=== PATIENT | male | born 1950 | race Caucasian/White ===

== ENCOUNTER 2020-04-14 07:02 | Outpatient (CLI) | payer MEDICARE, BC ==
--- NOTE | 2020-04-14 14:28 | Ultrasound Report ---
PROCEDURE: Aorta Screening INDICATIONS: AAA SCREEN TECHNIQUE: Real time scanning was performed of the aorta and iliac arteries, with image documentatio n. COMPARISON: None FINDINGS: Aorta: Proximal aortic diameter measures 2.7 x 2.4 cm. Mid-aorta measures 1.9 x 2.1 cm. Distal aor tic diameter is 1.6 x 1.5 cm. Iliac arteries: Right common iliac artery measures 0.9 x 0.9 cm. Left common iliac artery measures 1.0 x 1.1 cm. IMPRESSION: No aneurysmal dilation. Reviewed by: Meka Cole MD on 04/14/2020 2:27 PM PDT Approved by: Meka Cole MD on 04/14/2020 2:27 PM PDT Station ID: [id number]
== END 2020-04-14 07:03 | disposition home or self-care (01) ==
LOC: DI 07:02
PROVIDERS: ATTEND Internal Medicine
DX: Z13.6 Encounter for screening for cardiovascular disorders (principal)
CPT/HCPCS: 76706

== ENCOUNTER 2021-10-01 08:00 | Outpatient (CLI) | payer BC, MEDICARE ==
--- NOTE | 2021-10-01 16:10 | XRAY Report ---
PROCEDURE: Foot 3 View LT INDICATIONS: LEFT FOOT PAIN TECHNIQUE: 3 views of the foot were acquired. COMPARISON: None FINDINGS: Bones: No fractures or dislocations. No suspicious bony lesions. Soft tissues: No tibiotalar joint effusion. Achilles tendon appears normal. IMPRESSION: No osseous lesion. If there are persistent symptoms or continued clinical concern for pathology, then repeat plain film radiographs (7-10 days) or advanced imaging (CT, MR, bone scan) should be consider ed for further evaluation. Reviewed by: Mya Nava MD, PhD on 10/01/2021 4:08 PM PST Approved by: Mya Nava MD, PhD on 10/01/2021 4:08 PM PST Station ID: [id number]
== END 2021-10-01 23:59 | disposition home or self-care (01) ==
LOC: DI.S 08:00
PROVIDERS: ATTEND Physician Assistant Medical
DX: M79.672 Pain in left foot (principal)

== ENCOUNTER 2022-12-09 11:57 | Day surgery (SDC) | payer MEDICARE ==
[2022-12-09] MEDS ORDERED: ceFAZolin 2 GM VIAL ONE (12:03)
[2022-12-09] MEDS ORDERED: LACTATED RINGERS 1,000 ML IV ONE ×2 (12:07→15:03)
[2022-12-09] MEDS ORDERED: LIDOCAINE MPF 2%-EPI 1:200000 20 ML VIAL ONE (13:10)
[2022-12-09] MEDS ORDERED: BUPIVACAINE 0.25% PF 30 ML VIAL ONE (13:10)
--- NOTE | 2022-12-09 13:11 | ANESTHESIA ---
Pre-Anesthesia VS, & Labs - Diagnosis left inguinal hernia - Procedure left inguinal hernia repair with mesh Vital Signs: Temp Pulse Resp BP Pulse Ox O2 Flow Rate 36.6 C 55 L 16 157/84 H 100 12/09/22 12:12 12/09/22 12:12 12/09/22 12:12 12/09/22 12:12 12/09/22 12:12 Height: 5 ft 9 in Weight (kg): 79 kg Body Mass Index: 25.7 BMI Classification: Overweight - NPO >8 hours Home Medications and Allergies Home Medications: Ambulatory Orders No Known Home Medications 11/30/22 No Known Home Medications 11/30/22 Allergies/Adverse Reactions: Allergies Allergy/AdvReac Type Severity Reaction Status Date / Time No Known Drug Allergies Allergy Verified 11/30/22 13:26 Anes History & Medical History - Anesthetic History Anesthesia Complications: reports: No previous complications - Medical History Cardiovascular: reports: Hypertension, High cholesterol Pulmonary: reports: None Gastrointestinal: reports: None Urinary: reports: None Neuro: reports: None Musculoskeletal: reports: None Endocrine/Autoimmune: reports: None Skin: reports: None Smoking Status: Former smoker (quit 1982) Psychosocial: reports: Alcohol (2-3 beers and liquor daily) History of Cancer?: No - Surgical History General: reports: Colonoscopy, Other (right IHR) Exam General: Alert, Oriented x3, Cooperative, No acute distress Dental: WNL Mouth Openin Fingerbreadth Neck Mobility: Normal Mallampati classification: II Thyromental Distance: 4-6 cm Mental/Cognitive Status: Alert/Oriented X3, Normal for patient Plan Anesthesia Type: MAC Consent for Procedure(s) Verified and Reviewed: Yes Code Status: Attempt Resuscitation ASA classification: 2-Mild systemic disease Is this case an emergency?: No
[2022-12-09] MEDS ORDERED: MIDAZOLAM 2 MG/2 ML VIAL ONE (13:20)
[2022-12-09] MEDS ORDERED: PROPOFOL 500 MG/50 ML 500 MG/50 ML VIAL ONE (13:20)
[2022-12-09] MEDS ORDERED: fentaNYL 100 MCG/2 ML VIAL ONE (13:21)
--- NOTE | 2022-12-09 13:33 | HISTORY & PHYSICAL EXAMINATION ---
Chief Complaint - Chief Complaint Chief Complaint: left inguinal hernia History of Present Illness - History Obtained From Records Reviewed: yes History obtained from: pt Exam Limitations: none - History of Present Illness HPI Comment/Other: left inguinal hernia x mos. getting worse History - Past Medical History Cardiovascular: reports: Hypertension, High cholesterol Respiratory: reports: None Neuro: reports: None Endocrine/Autoimmune: reports: None GI: reports: None : reports: None HEENT: reports: Chronic vision loss Psych: reports: None Musculoskeletal: reports: None Derm: reports: None MRSA Hx?: No - Past Surgical History General: reports: Colonoscopy, Other (right IHR) Meds/Allgy - Home Medications Home Medications: Ambulatory Orders Medication Instructions Recorded Confirmed No Known Home Medications 11/30/22 11/30/22 - Allergies Allergies/Adverse Reactions: Allergies Allergy/AdvReac Type Severity Reaction Status Date / Time No Known Drug Allergies Allergy Verified 11/30/22 13:26 Review of Systems - Other Findings Other Findings: 10 pt ros as above otherwise unremarkable Exam - Vital Signs Reviewed Vital Signs: Yes Vital Signs: Vital Signs x48h Temp Pulse Resp BP Pulse Ox 12/09/22 12:12 36.6 C 55 L 16 157/84 H 100 - Physical Exam General Appearance: positive: No acute distress, Alert Eyes Bilateral: positive: PERRL, EOMI ENT: positive: No signs of dehydration Neck: positive: No JVD, Trachea midline Respiratory: positive: Breath sounds nml Cardiovascular: positive: Regular rate & rhythm Abdomen: positive: Non-tender, No distention, Other (left inguinal hernia present) Neurologic/Psychiatric: positive: Oriented x3 Conclusion/Plan - Other Other Results/Comments: plan open repair with mesh. pargisela held and consent obtained
[2022-12-09] MEDS ORDERED: BUPIVACAINE 0.25% PF 30 ML VIAL SUBQ ONE ×2 (13:51→14:55)
[2022-12-09] MEDS ORDERED: LIDOCAINE MPF 2%-EPI 1:200000 20 ML VIAL SUBQ ONE ×2 (13:53→14:55)
[2022-12-09] MEDS ORDERED: HYDROcod/ACETAM 5/325 MG TABLET PO PRN (15:06)
[2022-12-09] MEDS ORDERED: HYDROmorphone 0.5 MG/0.5 ML SYRINGE IVP PRN (15:06)
--- NOTE | 2022-12-09 15:13 | OPERATIVE REPORT ---
Operative Report - General Procedure Date: 12/09/22 Planned Procedure: open left inguinal hernia repair Pre-Op Diagnosis: left inguinal hernia Procedure Performed: open left inguinal hernia repair Post Op Diagnosis: direct inguinal hernia - Procedure Note Primary Surgeon: elvira lawler Anesthesia Technique: Local, MAC Pathology: none sent Estimated Blood Loss (mL): 2 Drain/Tube Type: Other (none) Indications: painful hernia bulge Findings: direct inguinal hernia. Complications: none - Other Other Information/Narrative: Patient was properly identified brought to the operating room and placed in supine position. Sequential compression devices were placed. Monitored anesthesia care and sedation was given. He was prepped and draped in a sterile fashion and given preoperative antibiotics. Local anesthetic was given throughout the procedure. A 5 cm incision was made in the direction of Kashmir's lines just cephalad of the pubic tubercle. Dissection proceeded with cutting current cautery. The superficial epigastric vein was identified clamped divided and tied with 3-0 Vicryl. Dissection proceeded down to the aponeurosis. The aponeurosis was opened in the direction of its fibers and extended to the external ring. Cord structures were mobilized and brought up. The nerves were carefully protected and preserved. Cord structures were mobilized and brought up. A large direct hernia was identified. The direct bulge was mobilized away from surrounding structures. It was reduced and floor repaired with a 2-0 silk pursestring suture. There was no indirect inguinal hernia. Preperitoneal fat was removed. The base was tied with 2 O vicryl. Polypropylene mesh was cut to size and with tails. The mesh was secured with multiple interrupted 0 Ethibond sutures. Sutures were placed along the pubic tubercle, Jose Angel's ligament area and along the shelving border of Poupart's ligament. Sutures were placed medially along the abdominal wall musculature and internal oblique. The medial tail of the mesh was secured to the shelving border of Poupart's ligament with 3 interrupted 0 ethibond sutures recreating the internal ring of appropriate size. An additional suture was placed in the crotch of the mesh recreating an internal ring of appropriate size. Aponeurosis was closed with a running 2-0 Vicryl suture. The opposite was closed with interrupted 3-0 Vicryl suture. Buried interrupted subdermal 3-0 Vicryl sutures were then placed. And was closed with a running 4-0 Monocryl subcuticular suture. Dressing was applied. Patient was awakened and brought to recovery in good condition.
[2022-12-09 15:45] VITALS: BP 144/76
--- NOTE | 2022-12-10 07:58 | ANESTHESIA POST OP EVALUATION ---
Anesthesia Post Eval - Post Anesthesia Eval Vitals: Last Vital Signs Temp 36.3 C L 12/09/22 15:40 Pulse 62 12/09/22 15:40 Resp 16 12/09/22 15:40 BP 144/76 H 12/09/22 15:40 Pulse Ox 98 12/09/22 15:40 O2 Flow Rate CV Function Including HR & BP: Stable Pain Control: Satisfactory Nausea & Vomiting: Negative Mental Status: Baseline Respiratory Status: Airway Patent Hydration Status: Satisfactory Anesthesia Complications: None
== END 2022-12-09 11:58 | disposition home or self-care (01) ==
LOC: SDS 11:57
PROVIDERS: ATTEND Surgery
DX: K40.90 Unilateral inguinal hernia, without obstruction or gangrene, not specified as recurrent (principal); I10 Essential (primary) hypertension; Z87.891 Personal history of nicotine dependence
CPT/HCPCS: 49505; C1781; J7120

== ENCOUNTER 2023-05-27 08:43 | Outpatient (CLI) | payer MEDICARE ==
[2023-05-27 15:16] LABS: BASOPHILS # (AUTO) 0.1 10^3/uL (0.0-0.1); BASOPHILS % (AUTO) 1.1 %; EOSINOPHILS # (AUTO) 0.1 10^3/uL (0.0-0.7); EOSINOPHILS % (AUTO) 1.4 %; HCT - HEMATOCRIT 44.7 % (42.0-52.0); HGB - HEMOGLOBIN 14.9 g/dL (14.0-18.0); LYMPHOCYTES # (AUTO) 1.3 10^3/uL (1.5-3.5); LYMPHOCYTES % (AUTO) 19.5 %; MEAN CORPUSCULAR HEMOGLOBIN 31.4 pg (27.0-31.0); MEAN CORPUSCULAR HGB CONC 33.3 g/dL (32.0-36.0); MEAN CORPUSCULAR VOLUME 94.1 fL (80.0-94.0); MEAN PLATELET VOLUME 12.1 fL (7.4-11.4); MONOCYTES # (AUTO) 0.5 10^3/uL (0.0-1.0); MONOCYTES % (AUTO) 7.8 %; NEUTROPHILS # (AUTO) 4.5 10^3/uL (1.5-6.6); PLT - PLATELET COUNT 169 10^3/uL (130-450); RED BLOOD COUNT 4.75 10^6/uL (4.70-6.10); RED CELL DISTRIBUTION WIDTH 12.5 % (12.0-15.0); WHITE BLOOD COUNT 6.4 x10^3/uL (4.8-10.8)
[2023-05-27 15:26] LABS: ALBUMIN 4.1 g/dL (3.2-5.5); ALBUMIN/GLOBULIN RATIO 1.7 (1.0-2.2); ALKALINE PHOSPHATASE 46 IU/L (42-121); ALT ALANINE AMINOTRANSFERASE 11 IU/L (10-60); AST ASPARTATE AMINOTRANSFERASE 17 IU/L (10-42); BILIRUBIN,TOTAL 0.6 mg/dL (0.2-1.0); BUN - BLOOD UREA NITROGEN 13 mg/dL (6-20); CALCIUM 9.2 mg/dL (8.5-10.3); CARBON DIOXIDE - CO2 29 mmol/L (21-32); CHLORIDE 106 mmol/L (101-111); CHOL/HDL RATIO 3.9 (<5.0); CHOLESTEROL 193 mg/dL; CREATININE 0.8 mg/dL (0.6-1.3); GFR - MDRD 95 (>89); GLUCOSE 102 mg/dL (74-104); HDL CHOLESTEROL 49 mg/dL; LDL CHOLESTEROL,CALCULATED 129 mg/dL; LDL/HDL RATIO 2.6 (<3.6); POTASSIUM 4.3 mmol/L (3.5-4.5); SODIUM 139 mmol/L (135-145); TOTAL PROTEIN 6.5 g/dL (6.4-8.9); TRIGLYCERIDES 73 mg/dL (48-352); URIC ACID 6.5 mg/dL (4.4-7.6); VLDL CHOLESTEROL 15 mg/dL
[2023-05-27 15:38] LABS: PSA TOTAL 1.469 ng/mL (0.000-2.000)
[2023-05-27 15:42] LABS: THYROID STIMULATING HORMONE 2.39 uIU/mL (0.34-5.60)
[2023-05-29 09:08] LABS: HCV RNA QUANTITATION HCV Not Detected IU/mL (.)
[2023-05-31 10:23] LABS: ESTIMATED AVERAGE GLUCOSE 100 mg/dL (70-100); HEMOGLOBIN A1c% 5.1 % (4.27-6.07)
== END 2023-05-27 08:44 | disposition home or self-care (01) ==
LOC: LAB.S 08:43
PROVIDERS: ATTEND Internal Medicine
DX: Z00.00 Encounter for general adult medical examination without abnormal findings (principal); R41.3 Other amnesia; R53.83 Other fatigue; M10.9 Gout, unspecified; E78.5 Hyperlipidemia, unspecified; N40.0 Benign prostatic hyperplasia without lower urinary tract symptoms; Z11.59 Encounter for screening for other viral diseases; Z79.899 Other long term (current) drug therapy; R73.01 Impaired fasting glucose
CPT/HCPCS: 36415; 80053; 80061; 82607; 83036; 83721; 84153; 84443; 84550; 85025; 86780; 87522

== ENCOUNTER 2023-12-21 08:13 | Outpatient (CLI) | payer MEDICARE ==
--- NOTE | 2023-12-21 11:28 | MRI Report ---
PROCEDURE: Shoulder LT WO INDICATIONS: INCOMPLETE ROTATR-CUFF TEAR/RUPTR OF L SHOULDER TECHNIQUE: Noncontrast oblique coronal T2 fast spin echo with fat saturation, oblique sagittal T1 spin echo and T2 fast spin echo with fat saturation, axial T1 spin echo and T2 fast spin echo with fat saturation a nd 3-D gradient echo through the shoulder. COMPARISON: None. FINDINGS: Image quality: Excellent. Rotator cuff: There is high-grade partial bursal sided tearing involving the supraspinatus tendon and anterior fibers infraspinatus tendon at the distal insertion with mild retraction of tendon fibers m easuring up to 5 mm. Superimposed full-thickness perforation is suspected. Teres minor tendon is inta ct. There is mild subscapularis tendinosis. There is grade 2 fatty infiltration of the teres minor mu scle that is likely related to chronic denervation changes. No mass is seen in the course of the axil erika nerve. The remaining rotator cuff muscles are normal in bulk. Bones and bursae: No acute trabecular bone injury or fracture. Small chronic traction cystic changes are seen in the posterosuperior humeral head and the greater and lesser tuberosities of the rotator c uff tendon insertions. No focal glenohumeral cartilage defect. Mild degenerative spurring in the claude oid labrum. Moderate degenerative changes are seen in the acromioclavicular joint with subchondral cy stic changes, subchondral edema, marginal osteophyte formation. Acromioclavicular joint is borderline widened. Moderate fluid is seen in the subacromial/subdeltoid bursa that may communicate with a mode rate glenohumeral effusion. Possible 4 mm loose body versus focal synovial hypertrophy at the superio r subscapularis recess. Capsule and soft tissues: There is mild diffuse labral degeneration. Proximal biceps long head tendon demonstrates moderate to severe tendinosis. There is effacement of fat signal in the rotator interva l. Glenohumeral ligaments appear to be intact. IMPRESSION: 1.Partial bursal sided tearing involving the supraspinatus tendon and anterior fibers of the infraspi natus tendon at their distal insertions with mild 5 mm proximal tendon retraction. A superimposed foc al full-thickness perforation component is suspected. 2.Mild subscapularis tendinosis. 3.MIld fatty infiltration of the teres minor muscle is suspicious for chronic denervation changes. No mass is seen along the course of the axillary nerve. 4.Moderate to severe proximal biceps long head tendinosis. 5.Moderate acromioclavicular joint osteoarthrosis. 6.Moderate subacromial/subdeltoid bursal fluid, which may communicate with a moderate glenohumeral ef fusion. 4 mm filling defect in the superior subscapularis recess may represent an intra-articular loo se body or focal synovial hypertrophy. Reviewed by: Abhilash Pinedo MD on 12/21/2023 11:27 AM PDT Approved by: Abhilash Pinedo MD on 12/21/2023 11:27 AM PDT Station ID: [id number]
== END 2023-12-21 08:14 | disposition home or self-care (01) ==
LOC: DI 08:13
PROVIDERS: ATTEND Orthopaedic Surgery
DX: M75.112 Incomplete rotator cuff tear or rupture of left shoulder, not specified as traumatic (principal); M19.012 Primary osteoarthritis, left shoulder; M67.922 Unspecified disorder of synovium and tendon, left upper arm